=== PATIENT | male | born 1975 | race Caucasian/White ===

== ENCOUNTER 2023-09-09 16:51 | Outpatient (RCR) | payer BC ==
[~2023-09-09 16:51] MED LIST: AMIODARONE HCL200 MG PO; ATENOLOL25 MG PO; ATENOLOL50 MG PO; ATORVASTATIN CA20 MG PO; COUMADIN5 MG PO; FENOFIBRATE145 MG PO; IMIPRAMINE HCL50 MG PO; KEFLEX500 MG PO; MULTI-VITAMIN1 EACH PO; NORVASC5 MG PO; OMEPRAZOLE40 MG PO; PRILOSEC; SODIUM BICARBO650 MG PO; TOPROL XL200 MG
== END 2023-09-26 ==
LOC: PT 16:51
PROVIDERS: ATTEND Physician Assistant
DX: M75.41 Impingement syndrome of right shoulder (principal)